=== PATIENT | male | born 1965 | race Caucasian/White ===

== ENCOUNTER → 2017-11-10 | Outpatient (CLI) | payer OTHER | LOC: RAD 11:40 | DX: R22.32 Localized swelling, mass and lump, left upper limb (principal) ==

== ENCOUNTER → 2017-12-18 | Outpatient (CLI) | payer OTHER ==
[~2017-12-18] VITALS: Ht 167.6 cm; Wt 81.6 kg
--- NOTE | ~2017-12-18 | PATH ---
[facility] [place] [address] PATHOLOGY RPT PROCEDURE Name: SUDHAKAR BERG Room #: REG CL M.R.#: [id number] Admission: 12/18/17 Date of : 65 Discharge: Report #: [id number] Path Case #: [id number] [facility] Accession Number: [id number] . 01 Material submitted: . PART A: POLYP AT CECUM X 3 PART B: POLYP AT TRANSVERSE COLON PART C: POLYP AT DESCENDING COLON PART D: POLYP AT SIGMOID COLON X 3 . 01 Clinical history: . Pre-OP DX: Screening Post-OP DX: Colon polyps . 02 Diagnosis: A. Colon, polyp at cecum x 3, biopsy: - Tubular adenoma, negative for high grade dysplasia (two fragments). - Colonic mucosa with hyperplastic changes (one fragment). . B. Colon, polyp at transverse colon, biopsy: - Tubular adenoma, fragments. - Negative for high grade dysplasia. . C. Colon, polyp at descending colon, biopsy: - Hyperplastic polyp. . D. Colon, polyp at sigmoid colon x 3, biopsy: - Tubular adenoma, negative for high grade dysplasia (one fragment). - Hyperplastic polyp (two fragments). (MAP/db; 12/19/2017) LBQ/12/19/2017 . 02 Electronically signed: . Sudhakar Hidalgo MD, Pathologist NPI- [id number] . 01 Gross description: . A. Received in formalin labeled "Sudhkaar Berg, polyp at cecum x3," is a 0.7 x 0.5 x 0.4 cm polypoid piece of hyman soft tissue. The margin is inked and the specimen is sectioned perpendicular to the margin and entirely submitted in cassette A1. Additionally received in the same container are 2 segments of hyman soft tissue measuring 1.1 x 0.3 x 0.3 cm in aggregate dimensions and ranging from 0.5 to 0.6 cm maximum dimension. The specimen is submitted entirely in cassette A2. . B. Received in formalin labeled "Sudhakar Berg, polyp at transverse colon," are 2 segments of hyman soft tissue measuring 0.8 x 0.2 x 0.2 [place] [address] PATHOLOGY RPT PROCEDURE Name: SUDHAKAR BERG Room #: REG CLI M.Enoch.#: [id number] Admission: 12/18/17 Date of : 65 Discharge: Report #: [id number] Path Case #: [id number] aggregate dimensions and measuring 0.4 cm each in maximum dimension. The specimen is submitted entirely in cassette B1. . C. Received in formalin labeled "Sudhakar Berg, polyp at descending colon," is a 1.1 x 0.3 x 0.3 cm polypoid piece of hyman soft tissue. The margin is inked and the specimen is sectioned perpendicular to the margin and entirely submitted in cassette A1. Additionally received in the same container are 2 segments of hyman soft tissue measuring 0.6 x 0.3 x 0.2 cm in aggregate dimensions and ranging from 0.5 to 0.6 cm in maximum dimension. The specimen is submitted entirely in cassette C2. . D. Received in formalin labeled "Sudhakar Berg, polyp at sigmoid colon x3," are 3 segments of hyman soft tissue measuring 1.2 x 0.8 x 0.4 cm in aggregate dimensions and ranging from 0.4 to 0.8 cm in maximum dimension. The specimen is submitted entirely in cassette D1. (TSD; 12/18/2017) TOB/TOB . 02 Pathologist provided ICD-10: D12.0, D12.3, D12.5, K63.5 . 02 CPT . 577699, [id number], [id number], [id number] Performed at: [address], [place] [id number] MD Devante Nickerson MD Phone: [phone] Performed at: [address] [id number] MD Elo Meza MD Phone: [phone]
== END ==
LOC: GI 08:24
DX: Z12.11 Encounter for screening for malignant neoplasm of colon (principal); D12.0 Benign neoplasm of cecum; D12.5 Benign neoplasm of sigmoid colon; D12.3 Benign neoplasm of transverse colon; K63.5 Polyp of colon; K64.8 Other hemorrhoids; F17.210 Nicotine dependence, cigarettes, uncomplicated
CPT/HCPCS: 62110; 62900

== ENCOUNTER → 2020-04-02 | Outpatient (CLI) | payer OTHER ==
[2020-04-02 12:28] LABS: ABSOLUTE NEUTROPHILS 2.3 thou/uL (1.4-8.2); BASOPHILS 0.9 % (0.0-2.0); EOSINOPHILS 3.8 % (0.0-3.0); HEMATOCRIT 43.6 % (42.0-52.0); HEMOGLOBIN 14.9 gm/dL (14.0-18.0); LYMPHOCYTES 36.4 % (24.0-44.0); MCH 33.6 pg (26.0-34.0); MCHC 34.2 g/dL (28.0-37.0); MCV 98.3 fL (80.0-100.0); MONOCYTES 9.6 % (1.0-8.0); PLATELET COUNT 194 thou/uL (150-400); POLYS 49.3 % (36.0-66.0); RBC 4.43 mil/uL (4.50-6.00); RDW 13.1 % (10.5-14.5); WBC 4.6 thou/uL (4.0-11.0)
[2020-04-02 12:38] LABS: ALBUMIN 4.3 g/dL (3.4-5.0); ANION GAP 10 mmol/L (7-16); BUN 14 mg/dL (7-18); CHLORIDE 101 mmol/L (98-107); CHOLESTEROL 182 mg/dL (<200); CO2 29 mmol/L (21-32); CREATININE 1.1 mg/dL (0.7-1.3); GLUCOSE 96 mg/dL (74-106); HDL CHOLESTEROL 95 mg/dL (>40); LDL CHOLESTEROL 74 mg/dL (<100); POTASSIUM 3.7 mmol/L (3.5-5.1); SGOT 32 U/L (15-37); SGPT 40 U/L (30-65); SODIUM 140 mmol/L (136-145); TC:HDL 1.9 Ratio (Not establshd); TOTAL BILIRUBIN 0.3 mg/dL (0.2-1.0); TOTAL PROTEIN 7.8 g/dL (6.4-8.2); TRIGLYCERIDE 65 mg/dL (<150); VLDL 13 mg/dL (<40)
== END ==
LOC: LAB 11:53
PROVIDERS: ATTEND Nurse Practitioner
DX: Z12.5 Encounter for screening for malignant neoplasm of prostate (principal); Z13.220 Encounter for screening for lipoid disorders; Z00.00 Encounter for general adult medical examination without abnormal findings

== ENCOUNTER → 2020-09-21 | Outpatient (CLI) | payer OTHER | LOC: LAB 09:07 | PROVIDERS: ATTEND Nurse Practitioner | DX: Z01.812 Encounter for preprocedural laboratory examination (principal); Z20.822 Contact with and (suspected) exposure to COVID-19 ==